=== PATIENT | male | born 1960 | race African-American/Black ===

== ENCOUNTER 2019-05-11 02:54 | Inpatient (IN) | payer OTHER ==
[2019-05-11] VITALS (527 sets, daily range): BP systolic 149–203; BP diastolic 67–103; PULSE 98–108; TEMP 98.4–100.2; O2SAT 85–100
[~2019-05-11] VITALS: Ht 182.9 cm; Wt 125.6 kg
[2019-05-11] MEDS ORDERED: NOVOLOG FLEX100 U/ML SQ (05:20)
[2019-05-11] MEDS ORDERED: LEVEMIR100 U/ML SQ (05:21)
[2019-05-11] MEDS ORDERED: GLUCOPHAGE500 MG/TAB PO (05:22)
[2019-05-11] MEDS ORDERED: PRILOSEC 20MG20 MG PO (05:24)
[2019-05-11] MEDS ORDERED: ZYRTEC5 MG PO (05:25)
[2019-05-11] MEDS ORDERED: CATAPRES0.3 MG PO (05:26)
[2019-05-11 05:54] LABS: MUCOUS Present /lpf; PH 6 (5-8); SQUAMOUS EPITHELIAL 0-2 /hpf; URINE APPEARANCE Clear; URINE BACTERIA None Seen /hpf; URINE BILIRUBIN Negative (NEGATIVE); URINE BLOOD 1+ (NEGATIVE); URINE COLOR Straw; URINE GLUCOSE 3+ (NEGATIVE); URINE KETONE Trace (NEGATIVE); URINE LEUKOCYTE ESTERASE Negative (NEGATIVE); URINE NITRATE Negative (NEGATIVE); URINE PROTEIN(semi-quant) 2+ (NEGATIVE); URINE UROBILINOGEN Negative (NEGATIVE)
[2019-05-11 07:02] LABS: COLLECTION METHOD CATHETER
[2019-05-11 07:18] LABS: BASO % 0.2 % (0.0-2.0); EOS % 0.3 % (0-4.0); GRAN # 10.2 (1.4-6.5); GRAN % 84.8 % (42.2-75.2); HEMOGLOBIN 12.2 g/dl (13.5-18.0); LYMPH # 1.1 (1.2-3.4); LYMPH % 8.9 % (20.0-51.0); MEAN CELL VOLUME 83 fl (80.0-100.0); MEAN CORPUSCULAR HEMOGLOBIN 27 pg (27.0-31.0); MEAN CORPUSCULAR HGB CONC 33 g/dl (33.0-37.0); MEAN PLATELET VOLUME 11.9 fl (7.4-10.4); MONO # 0.7 (0.1-0.6); MONO % 5.6 % (1.7-9.3); PLATELET COUNT 190 K/mm3 (130-400); RED BLOOD COUNT 4.46 M/mm3 (4.20-5.60); REDCELL DISTRIBUTION WIDTH-CV 13.2 % (11.5-14.5)
[2019-05-11 07:31] LABS: BILIRUBIN,TOTAL 0.6 mg/dL (0.0-1.0); CALCIUM 9.6 mg/dL (8.4-10.2); CHOLESTEROL RISK RATIO 4.1; CREATININE, serum 1.23 (0.66-1.25); HEMATOCRIT 36.8 % (42.0-52.0); PHOSPHOROUS 2.5 mg/dL (2.5-4.5); POTASSIUM 3.6 mmol/L (3.4-5.0); TOTAL PROTEIN 8.3 gm/dL (6.4-8.2)
[2019-05-11 07:42] LABS: TROPONIN-I 0.027 ng/mL (0.000-0.035)
--- NOTE | 2019-05-11 10:26 | NUR ---
NAOMI met with the patient to discuss a discharge plan. The pt lives alone in . The pt uses no DME and reports independence with ADLs. The pt's PCP is with the [facility] at [facility] and receives his medications via mail from there as well. The pt does not have advanced directive in the EMR and was not interested in a DPOA-HC form. The pt plans to return home upon discharge. There are no additional needs at this time.
--- NOTE | 2019-05-11 11:15 | NUR ---
AT 0800, PT PULLED OUT IV TO LEFT HAND THAT WAS RUNNING INSULIN DRIP. IV ACCESS REGAINED AT 1000 WITH PICC LINE. INSULIN RESTARTED AT 1115.
[2019-05-11 15:20] LABS: TRICYCLIC ANTIDEPRESS URINE NEGATIVE
--- NOTE | 2019-05-11 16:30 | NUR ---
IV CARDENE DOSE CONCENTRATION DOUBLED. WAS PREVIOUSLY 25MG/250ML, IS NOW 50MG/250ML. CONCENTRATION DOUBLED DUE TO FREQUENT IV CARDENE BAG CHANGES.
[2019-05-11 18:12] LABS: CALCIUM 9.3 mg/dL (8.4-10.2); CREATININE, serum 1.24 (0.66-1.25); POTASSIUM 3.1 mmol/L (3.4-5.0)
--- NOTE | 2019-05-11 19:12 | NUR ---
BEDSIDE SHIFT REPORT GIVEN TO DOMINICK ORTA. IV DRIPS, POC, MEDICATIONS, VERIFIED AND REVIEWED.
--- NOTE | 2019-05-11 19:32 | NUR ---
Patient assessment completed and charted at this time, please see documentation for details. Patient resting in bed, answering appropriately. Will continue to monitor.
--- NOTE | 2019-05-11 21:51 | NUR ---
Patient blood glucose indicated to be 92 at this time, insulin gtt placed on hold. While nurse is still in room, patient fell out of bed, with bed alarm, yellow gown/socks in place. Patient states he struck his head, no pain, ADAMA Guevara outside of room and called in. Ordered stat head CT. Will continue to monitor.
[2019-05-11] MEDS ORDERED: ZESTRIL40 MG PO (23:37)
[2019-05-11] MEDS ORDERED: LOPRESSOR100 MG PO (23:38)
[2019-05-11] MEDS ORDERED: HCTZ 25MG TAB25 MG PO (23:38)
[2019-05-11] MEDS ORDERED: CARDURA 8MG TAB8 MG PO (23:39)
[2019-05-11] MEDS ORDERED: LIPITOR 80MG80 MG PO (23:40)
[2019-05-11] MEDS ORDERED: MULTI VITAMINS1 TAB PO (23:40)
--- NOTE | 2019-05-11 23:42 | NUR ---
Updated Medication Reconcilliation with medications that patient daughter brought in. Unsure of when patient took medications.
[2019-05-12] VITALS (78 sets, daily range): BP systolic 132–184; BP diastolic 64–99; PULSE 63–108; TEMP 97.7–99.9; O2SAT 66–100
--- NOTE | 2019-05-12 04:05 | NUR ---
Patient assessment completed and charted at this time, please see documentation for details. Patient resting in bed, yellow gown and bed alarm in place. Patient denies needing anything, will continue to monitor.
[2019-05-12 05:08] LABS: BASO % 0.2 % (0.0-2.0); GRAN # 11.1 (1.4-6.5); GRAN % 78.7 % (42.2-75.2); HEMATOCRIT 32.8 % (42.0-52.0); HEMOGLOBIN 10.9 g/dl (13.5-18.0); LYMPH # 1.6 (1.2-3.4); LYMPH % 11.2 % (20.0-51.0); MEAN CELL VOLUME 83 fl (80.0-100.0); MEAN CORPUSCULAR HEMOGLOBIN 28 pg (27.0-31.0); MEAN CORPUSCULAR HGB CONC 33 g/dl (33.0-37.0); MEAN PLATELET VOLUME 11.2 fl (7.4-10.4); MONO # 1.4 (0.1-0.6); MONO % 9.6 % (1.7-9.3); PLATELET COUNT 177 K/mm3 (130-400); RED BLOOD COUNT 3.94 M/mm3 (4.20-5.60); REDCELL DISTRIBUTION WIDTH-CV 13.3 % (11.5-14.5)
[2019-05-12 05:15] LABS: CALCIUM 8.6 mg/dL (8.4-10.2); CREATININE, serum 1.2 (0.66-1.25); POTASSIUM 3.1 mmol/L (3.4-5.0)
--- NOTE | 2019-05-12 11:10 | NUR ---
ORDER RECIEVED TO STOP INSULIN DRIP 1 HOUR AFTER SQ LEVEMIR ADMINISTRATION. FSBS WAS 155 AT 0930.
--- NOTE | 2019-05-12 11:37 | NUR ---
Talent Consultant stopped by but patient requested to rest.
--- NOTE | 2019-05-12 19:18 | NUR ---
REPORT CALLED TO DOMINICK ADAMS ON MEDICAL FLOOR. DOMINICK ORTA WILL TRANSFER TO FLOOR.
--- NOTE | 2019-05-12 20:30 | NUR ---
Transferred from ICU to medical floor room 317- dx: seizures/HTN, hyperglycemia,,, Alert/oriented, pleasant, watching some TV, talking with family on the phone- no requests, VSS, blood sugar 157, Seizure pads on bed siderails, SCD,s on, Oshea to DD with clear yellow urine, Iv fluids of NS at 75cc/hr per ROLANDO PICC line. Understands to call for asistance up to bathroom-
[2019-05-13] VITALS (7 sets, daily range): BP systolic 139–171; BP diastolic 66–89; PULSE 63–94; TEMP 98.3–99.4
--- NOTE | 2019-05-13 04:51 | NUR ---
Has been resting well,VSS, no seizures B/P stable, tele on
[2019-05-13 06:13] LABS: BASO % 0.3 % (0.0-2.0); EOS # 0.4 (0.0-0.7); EOS % 3.8 % (0-4.0); GRAN # 5.1 (1.4-6.5); GRAN % 54.3 % (42.2-75.2); HEMOGLOBIN 10.3 g/dl (13.5-18.0); LYMPH # 2.8 (1.2-3.4); MEAN CELL VOLUME 85 fl (80.0-100.0); MEAN CORPUSCULAR HEMOGLOBIN 27 pg (27.0-31.0); MEAN CORPUSCULAR HGB CONC 32 g/dl (33.0-37.0); MEAN PLATELET VOLUME 11.8 fl (7.4-10.4); MONO # 1.1 (0.1-0.6); MONO % 11.4 % (1.7-9.3); PLATELET COUNT 184 K/mm3 (130-400); RED BLOOD COUNT 3.78 M/mm3 (4.20-5.60); REDCELL DISTRIBUTION WIDTH-CV 13.6 % (11.5-14.5)
[2019-05-13 06:24] LABS: CALCIUM 7.9 mg/dL (8.4-10.2); CREATININE, serum 1.35 (0.66-1.25); POTASSIUM 3.4 mmol/L (3.4-5.0)
--- NOTE | 2019-05-13 07:16 | NUR ---
Received report, patient is resting in bed on left side. Is awake, alert and oriented. Seizure pads are noted to be placed on all 4 side rails. Oshea is to dependent drain. Personal items and call light is within reach.
--- NOTE | 2019-05-13 18:34 | NUR ---
Patient is sitting up in bed eating supper. Has no pain at this time. Personal items and call light are within reach.
[2019-05-14 03:29] VITALS: BP 145/98; PULSE 80; TEMP 98.1
[2019-05-14 06:06] LABS: BASO % 0.5 % (0.0-2.0); EOS # 0.5 (0.0-0.7); EOS % 5.8 % (0-4.0); GRAN # 3.8 (1.4-6.5); GRAN % 45.9 % (42.2-75.2); HEMOGLOBIN 11.7 g/dl (13.5-18.0); LYMPH % 36.6 % (20.0-51.0); MEAN CELL VOLUME 84 fl (80.0-100.0); MEAN CORPUSCULAR HEMOGLOBIN 28 pg (27.0-31.0); MEAN CORPUSCULAR HGB CONC 33 g/dl (33.0-37.0); MONO # 0.9 (0.1-0.6); MONO % 10.8 % (1.7-9.3); PLATELET COUNT 175 K/mm3 (130-400); RED BLOOD COUNT 4.24 M/mm3 (4.20-5.60); REDCELL DISTRIBUTION WIDTH-CV 13.6 % (11.5-14.5)
[2019-05-14 06:11] LABS: HEMATOCRIT 35.8 % (42.0-52.0)
[2019-05-14 06:15] LABS: CALCIUM 8.5 mg/dL (8.4-10.2); CREATININE, serum 1.18 (0.66-1.25); MAGNESIUM 1.9 mg/dL (1.6-2.3); PHOSPHOROUS 4.6 mg/dL (2.5-4.5); POTASSIUM 3.6 mmol/L (3.4-5.0)
[2019-05-14 07:24] VITALS: BP 176/89; PULSE 87; TEMP 98.2
--- NOTE | 2019-05-14 08:46 | NUR ---
Assessment completed, alert/oriented, vital signs stable/ blood pressures much imporved, fsbs 92 this morning and in good control, he denies any pain or discomfort, denies any SOA or resp.difficulty, lungs CTA, heart RRR/distal pulses are palapble, sinus rythm on tele, restaurant shift leader nursing staff reported he did not have any seizure activity, Potasssium 3.6/ replacing per protocol\, he has eaten breakfast and is hoping to be discharged home today
[2019-05-14] MEDS ORDERED: APRESOLINE50 MG PO (10:22)
[2019-05-14] MEDS ORDERED: CATAPRES 0.1MG0.1 MG PO (10:22)
[2019-05-14] MEDS ORDERED: TOPROL XL200 MG PO ×2 (10:23)
[2019-05-14] MEDS ORDERED: KEPPRA1000 MG PO (10:24)
[2019-05-14] MEDS ORDERED: CARDIZEM CD 30300 MG PO (10:24)
[2019-05-14] MEDS ORDERED: NOVLOG SQ (10:25)
[2019-05-14] MEDS ORDERED: LEVEMIR100 U/ML SQ (10:25)
[2019-05-14 10:54] VITALS: BP 157/90; PULSE 85; TEMP 98.6
--- NOTE | 2019-05-14 11:06 | NUR ---
NAOMI met with the patient to review discharge plan. The patient reports that he would like home health for half-way to help with medication management and to take his blood pressure. NAOMI presented the patient with Medicare.gov's list of home health agencies that serve [place]. The patient chose [facility]. NAOMI contacted Audra at [facility] to inquire if they accept the patient's insurance. Audra reports that they accept the patient's insurance, [facility], but that it can take them a week or longer to approve the patient for services and that the provider normally likes to see the patient before hand. NAOMI met with the patient to inform. The patient reports that this is okay and that he would still like to pursue with getting set up with services. NAOMI attempted to contact Audra back at [facility] to inform. NAOMI faxed [facility] a referral. NAOMI to continue to follow.
[2019-05-14] MEDS ORDERED: COREG 25MG25 MG/TAB PO (13:11)
--- NOTE | 2019-05-14 14:30 | NUR ---
Radha, with the [facility] Red [facility], contacted NAOMI to inform that they would need a handoff report from the hospitalist to the patient's PCP, Dr. Alba Schaffer, telling her why the patient needs home health for half-way. NAOMI informed the hospitalist, Dr. Dinh, and provided him with the PCP's phone number. Radha requested that NAOMI fax the patient's records and discharge orders to her. NAOMI faxed that information to Radha. Radha reports that once she gets an order from the patient's PCP, she can get services set up through an agency like [facility]. NAOMI updated the patient. The patient was in agreeance to the plan. The patient is to discharge back home today, 05/14, and will begin home health services for half-way, once approved by his PCP. NAOMI updated Audra at [facility]. No additional needs at this time.
--- NOTE | 2019-05-14 15:19 | NUR ---
Discharge orders given to patient, instructed to follow up with PCP/Cardiology/Neurology as we have scheduled, explained that we also set him up for a split-night sleep study, discussed in length his new meds and medication changes with him, scripts transmitted to pharmacy for him, instructed to keep log of blood pressure and take with him to follow up appointments, AIVs removed his right arm PICC line and post PICC instructions reviewed, he is leaving with his family, I personally escorted him out the door
== END 2019-05-14 15:31 | disposition home health service (06) | DRG 101 ==
LOC: IMCU 02:54 → ICU 04:46 → MEDICAL 04:46
PROVIDERS: Internal Medicine Pulmonary Disease; Nurse Practitioner Family; Physician Assistant; ADMIT Hospitalist
PROC: 02HV33Z Insertion of Infusion Device into Superior Vena Cava, Percutaneous Approach (ICD-10-PCS; principal; 2019-05-11)
DX: G40.409 Other generalized epilepsy and epileptic syndromes, not intractable, without status epilepticus (principal); I16.9 Hypertensive crisis, unspecified; Z68.41 Body mass index [BMI] 40.0-44.9, adult; E11.65 Type 2 diabetes mellitus with hyperglycemia; E83.42 Hypomagnesemia; H53.8 Other visual disturbances; E78.5 Hyperlipidemia, unspecified; I12.9 Hypertensive chronic kidney disease with stage 1 through stage 4 chronic kidney disease, or unspecified chronic kidney disease; E11.22 Type 2 diabetes mellitus with diabetic chronic kidney disease; N18.2 Chronic kidney disease, stage 2 (mild); E66.9 Obesity, unspecified; Z79.4 Long term (current) use of insulin; Z79.84 Long term (current) use of oral hypoglycemic drugs; W06.XXXA Fall from bed, initial encounter; Y92.230 Patient room in hospital as the place of occurrence of the external cause; Z91.14 Patient's other noncompliance with medication regimen; R00.0 Tachycardia, unspecified; G47.33 Obstructive sleep apnea (adult) (pediatric)
CPT/HCPCS: 99223-AI; 99232-AI; 99239; A9585; C1751; C1892; J1650; J1815; J1953; J3475; J3480; J7030; J7050

== ENCOUNTER → 2022-12-21 | Outpatient (CLI) | payer OTHER ==
[~2022-12-21] MED LIST: APRESOLINE50 MG PO; CARDIZEM CD 30300 MG PO; CARDURA 8MG TAB8 MG PO; CATAPRES 0.1MG0.1 MG PO; CATAPRES0.3 MG PO; COREG 25MG25 MG/TAB PO; GLUCOPHAGE500 MG/TAB PO; HCTZ 25MG TAB25 MG PO; KEPPRA1000 MG PO; LEVEMIR100 U/ML SQ; LIPITOR 80MG80 MG PO; LOPRESSOR100 MG PO; MULTI VITAMINS1 TAB PO; NOVLOG SQ; NOVOLOG FLEX100 U/ML SQ; PRILOSEC 20MG20 MG PO; TOPROL XL200 MG PO; ZESTRIL40 MG PO; ZYRTEC5 MG PO
== END ==
LOC: COL.RAD 14:00
DX: I82.612 Acute embolism and thrombosis of superficial veins of left upper extremity (principal); N18.6 End stage renal disease; Z99.2 Dependence on renal dialysis